=== PATIENT | male | born 1945 | race Caucasian/White ===

== ENCOUNTER 2019-05-04 10:18 | Outpatient (CLI) | payer MEDICARE, BC, SELFPAY ==
[2019-05-04 13:24] LABS: CREATININE 1.09 mg/dL (0.70-1.30); Glucose 102 mg/dL (70-100)
[2019-05-04 16:22] LABS: Calculated LDL 109 mg/dL; Cholesterol 179 mg/dL (50-200); HDL Cholesterol 50 mg/dL (40-60); Triglyceride 101 mg/dL (30-150)
== END 2019-05-04 10:38 ==
PROVIDERS: PCP Family Medicine; Visit Provider Family Medicine
DX: E78.5 Hyperlipidemia, unspecified (principal); R73.02 Impaired glucose tolerance (oral)
CPT/HCPCS: 36415; 80061; 82947; 82565

== ENCOUNTER 2019-08-21 09:08 | Emergency (ER) | payer MEDICARE, BC, SELFPAY ==
[2019-08-21 09:11] VITALS: BP 131/93; PULSE 65; RESP 14; TEMP 36.4; O2SAT 96
--- NOTE | 2019-08-21 09:17 | ED.GENADUL_ITS ---
Discharge Plan Disposition Patient Disposition: HOME Condition: Stable Discharge Details Chief Complaint: EyeProblem Clinical Impression: Herpes zoster ophthalmicus, right eye Primary Care Provider: Hugo Cochran ED Provider: Hiral Simmons Home Meds and New Rx's Prescriptions: Continued atorvastatin 10 mg tablet 10 mg PO HS Qty: 90 RF: 3 aspirin 81 MG tablet,delayed release (DR/EC) 81 mg PO DAILY RF: 0 lysine [L-Lysine] 500 MG tablet 1 tab PO DAILY RF: 0 Fish Oil 500 MG capsule 1 cap PO DAILY RF: 0 Centrum Silver 1 EACH tablet 1 ea PO DAILY RF: 0 tmfsnssk-ixca-cxngia-hyalur ac 1 EACH capsule 1 ea PO DAILY RF: 0 tamsulosin 0.4 mg capsule 0.8 mg PO DAILY Qty: 180 RF: 3 finasteride 5 mg tablet 5 mg PO DAILY Qty: 90 RF: 3 cyanocobalamin (vitamin B-12) 2,500 MCG tablet 2,500 mcg PO DAILY RF: 0 Discharge Instructions Instructions: Shingles (ED) Additional Instructions: Take the valacyclovir until finished. You can apply cool compress to the area as needed. You can try lubricating eyedrops if needed. Call your primary care doctor's office on Friday morning to schedule a follow-up appointment for reevaluation this week. Return to the emergency department if you develop any worsening or new concerning symptoms of fever, headache, dizziness or any other concerns. Discharge Data Discharge Date/Time-TO BE ENTERED AT DEPARTURE: 08/21/19 10:03 Discharge Physician: Hiral Simmons Medical Decision Making 73-year-old male who presents with right eye irritation for the past week now with rash around eyes since yesterday. Patient states he has had right eye blurry vision has been worse in his left eye for several years, but this seems slightly worse than usual since symptoms started. Patient has a history of dementia but told at times that he feels like his right eye is swollen. noted yesterday that patient has a few bumps under his right eye and now with swelling. She called the PCP and they started patien t on valacyclovir which he took 2 doses but they came here for further evaluation. He denies fever, headache, dizziness and does not wear contacts or glasses. Visual acuity 20/25 both, 20/25 left, 20/50 right. Patient has baseline worsening vision in right eye so unclear if this is close to his baseline. Right eye appears minimally injected. There are 3-4 to millimeter vesicles/erosions noted lateral to the right eye. As well as to 1 to 1.5 mm minimally tender areas of swelling just inferior to this. No obvious foreign body with full inspection including eyelid eversion. Fluorescein staining negative for corneal abrasion. Slit-lamp exam negative for corneal ulcer or other foreign body. Discussed with and patient that exam at this point time does appear more consistent with herpes zoster ophthalmicus. Patient appears nontoxic. Would recommend continued treatment with valacyclovir. I also discussed that symptoms may progress or worsen and present as another etiology or diagnosis. Advised to follow up with the primary care doctor for re-evaluation. Usual and customary return precautions given prior to discharge. HPI General Date/Time Provider Initiated Documentation: 08/21/19 09:14 . History of Present Illness 73 year old M presents to the emergency department with the chief complaint of R eye pain and rash, Quality is described as burning, aching and sharp, and is localized to the face and eyes. Patient started experiencing this day(s) (1 week for pain, 1 day for rash) and it has been constant. No relieving factors improve symptom(s), No exacerbating factors reported . Patient notes denies chest pain, cough, diaphoresis, fever/chills, headaches, loss of appetite, malaise, nausea/vomiting, rash, seizure, shortness of breath, syncope and weakness. Patient did receive the following treatments prior to arrival, none Related Data Home Medications Medication Instructions Recorded Confirmed aspirin 81 mg PO DAILY tab-cap 07/09/13 08/21/19 Fish Oil 1 cap PO DAILY 08/20/13 08/21/19 lysine [L-Lysine] 1 tab PO DAILY 08/20/13 08/21/19 cyanocobalamin (vitamin B-12) 2,500 mcg PO DAILY 04/19/16 08/21/19 Centrum Silver 1 ea PO DAILY 05/22/16 08/21/19 tjillcfn-fneo-jqefzz-hyalur ac 1 ea PO DAILY 01/21/17 08/21/19 tamsulosin 0.4 mg capsule 0.8 mg PO DAILY #180 cap 01/15/19 08/21/19 finasteride 5 mg tablet 5 mg PO DAILY #90 tab 04/30/19 08/21/19 atorvastatin 10 mg tablet 10 mg PO HS #90 tab 05/04/19 08/21/19 Previous Rx's Medication Instructions Recorded tamsulosin 0.4 mg capsule 0.8 mg PO DAILY #180 cap 01/15/19 finasteride 5 mg tablet 5 mg PO DAILY #90 tab 04/30/19 atorvastatin 10 mg tablet 10 mg PO HS #90 tab 05/04/19 Allergies Allergy/AdvReac Type Severity Reaction Status Date / Time donepezil AdvReac Intermediate bradycardia Unverified 08/21/19 09:15 General Stated Complaint: EyeProblem TREMAYNE: 4 Review of Systems All systems reviewed & are unremarkable except as noted in HPI and below Constitutional Constitutional: Reports as per HPI, Denies chills and Denies fever(s) Eyes Eyes: Denies blurry vision ENT Ears, Nose, Mouth, and Throat: Denies dizziness, Denies sore throat and Denies throat swelling Cardiovascular Cardiovascular: Denies chest pain and Denies dyspnea Respiratory Respiratory: Denies cough and Denies dyspnea Gastrointestinal Gastrointestinal: Denies abdominal pain, Denies diarrhea and Denies vomiting Genitourinary Genitourinary: Denies hematuria and Denies dysuria Musculoskeletal Musculoskeletal: Denies back pain and Denies numbness Integumentary/Breasts Skin/Breast: Denies lesions and Denies rash Neurologic Neurologic: Denies dizziness, Denies focal weakness and Denies numbness Allergic/Immunologic Allergic/Immunologic: Denies throat swelling PFSH Medical History Hearing loss Hyperlipidemia Surgical History Colonoscopy - IV Sedation (04/19/16) Repair of inguinal hernia (~1987) RIGHT SHOULDER SURGERY Vasectomy Family History Mother , age 92 Dementia Father , age 74 Heart disease Sister Dementia Son No problems noted. Daughter No problems noted. Social History Smoking/Tobacco Use Status: Never Second Hand Exposure: Yes Alcohol Intake: never Drug use: Never Substance use type: does not use Caregiver/Support person: No Household members: spouse Housing: house Communication Needs: Hard of Hearing Do you need help understanding health information?: Rarely Pets and animals: No Sexually active: No Do you think of yourself as: straight/heterosexual Current gender identity: male What is your relationship status?: How often do you talk on the phone with friends or family?: decline to answer How often do you get together with friends or relatives?: three or more times per week How often do you attend buddhist or christian services?: 1-3 times per year Do you belong to any clubs or organized social groups?: no Panel score (0-1 are the most socially isolated patients): 2 What type of physical activity do you participate in: walking, weight lifting and other Duration: 60-90 minutes/day Frequency: 5-6 times per week Alexa/Anabaptism: None Special alexa needs: No Seatbelt use: always Helmet use: No Drive intox or ride w/intox semi truck driver: No Do you feel safe at home: Yes Do you feel safe in your relationship?: Yes Exam Const General: cooperative, healthy appearing and no acute distress HENMT Head: normal to inspection Ears: hearing grossly normal bilaterally, external ears normal and TM's normal bilaterally General nose exam: external nose normal Face and sinus: normal facial exam Mouth: oral mucosae normal Throat: posterior oropharynx normal Eyes General: appearance normal, both eyes and all related structures Periorbital: periorbital findings normal Eyelids: eyelids normal Conjunctivae: conjunctival abnormality right conjunctival injection (Mild, near lateral inferior aspect) Pupils: PERRL EOM: EOM intact bilaterally Eyes/upper lids images: 1. 3 scattered crusty papules noted lateral and inferior to lateral aspect of right eye. They appear. 2. 2 raised minimally tender not well-circumscribed papules/areas of edema just inferior to lateral eye. There is no erythema, ecchymosis, lesions or rash ar ound these areas. Neck Neck: normal visual inspection Resp Effort & Inspection: normal respiratory effort and able to speak in complete sentences Cardio Rate: regular rate Skin General skin exam: no rashes or lesions noted Neuro General: alert, awake and oriented x3 Motor: muscle tone normal throughout Extrem General: normal to inspection and full ROM Psych Appearance: grossly normal Affect: normal affect Course Vital Signs Vital signs: Vital Signs Temperature 97.5 F L 08/21/19 09:11 Pulse 65 08/21/19 09:11 Respiratory Rate 14 08/21/19 09:11 Blood Pressure 131/93 H 08/21/19 09:11 Pulse Oximetry 96 08/21/19 09:11 Temperature 97.5 F L 08/21/19 09:11 Temperature Source Temporal Artery Scan 08/21/19 09:11 Pulse 65 08/21/19 09:11 Respiratory Rate 14 08/21/19 09:11 Respiratory Effort Non-Labored 08/21/19 09:13 Blood Pressure 131/93 H 08/21/19 09:11 Blood Pressure Position Sitting 08/21/19 09:11 Pulse Oximetry 96 08/21/19 09:11 Pain Level 0 08/21/19 09:11
[2019-08-21] MEDS: Balanced Salt Solution 15 ML BTL (09:54)
[2019-08-21] MEDS: Fluorescein STRIPS 100/BOX 1 MG (09:54)
[2019-08-21] MEDS: Tetracaine 0.5% 4 ML BTL (09:54)
== END 2019-08-21 10:03 | disposition home or self-care (01) ==
PROVIDERS: Emergency Provider Physician Assistant; PCP Family Medicine
DX: B02.30 Zoster ocular disease, unspecified (principal)
CPT/HCPCS: 99284; 99283

== ENCOUNTER → 2021-09-13 11:20 | Outpatient (BNVA) | payer MEDICARE, BC, SELFPAY | PROVIDERS: PCP Family Medicine; Referring Provider Family Medicine; Visit Provider Surgery | DX: K40.90 Unilateral inguinal hernia, without obstruction or gangrene, not specified as recurrent (principal); R73.9 Hyperglycemia, unspecified; N40.1 Benign prostatic hyperplasia with lower urinary tract symptoms; F03.90 Unspecified dementia, unspecified severity, without behavioral disturbance, psychotic disturbance, mood disturbance, and anxiety | CPT/HCPCS: 99214; 99242 ==

== ENCOUNTER 2021-09-13 13:08 | Outpatient (REF) | payer MEDICARE, BC, SELFPAY ==
[2021-09-13 14:59] LABS: Abs Immature Grans 0.05 10^3/uL (0.0-0.06); Absolute Basophil Count 0.05 10^3/uL (0.0-0.2); Absolute Eosinophil Count 0.13 10^3/uL (0.0-0.7); Absolute Lymphocyte Count 1.55 10^3/uL (1.2-3.4); Absolute Monocyte Count 0.61 10^3/uL (0.1-0.8); Absolute Neutrophil Count 6.08 10^3/uL (1.2-6.7); Basophils % 0.6; Eosinophils % 1.5; HCT 44.4 % (40.0-50.0); HGB 14.4 g/dL (13.5-17.5); Immature Grans % 0.6; Lymphocytes % 18.3; MCH 30.4 pg (27.0-33.0); MCHC 32.4 % (32.0-36.0); MCV 93.9 fL (80-95); MPV 10.2 fL (8.0-11.0); Monocytes % 7.2; Neutrophils % 71.8; Nucleated RBC 0 %; Platelet Count 278 10^3/uL (130-400); RBC 4.73 10^6/uL (4.36-5.78); RDW 13.1 % (11.8-14.1); RDW-SD 45.1 fL; WBC 8.47 10^3/uL (4.4-10.8)
[2021-09-13 15:20] LABS: ALT 20 U/L (16-63); AST 14 U/L (15-37); Albumin 3.8 g/dL (3.4-5.0); Alkaline Phosphatase 96 U/L (46-116); Anion Gap 8.7 mmol/L (3-11); BUN 15 mg/dL (7-18); Bilirubin, Total 0.7 mg/dL (0.2-1.0); CO2 28.3 mmol/L (21.0-32.0); CREATININE 1.1 mg/dL (0.70-1.30); Calcium 8.9 mg/dL (8.5-10.1); Chloride 104 mmol/L (98-107); Glucose 107 mg/dL (74-106); Potassium 4.4 mmol/L (3.5-5.1); Sodium 141 mmol/L (136-145); TSH (W/Ref FT4) 2.41 uIU/mL (0.36-3.74); Total Protein 7.1 g/dL (6.4-8.2)
== END 2021-09-13 13:09 | disposition home or self-care (01) ==
LOC: LBN 13:08
PROVIDERS: PCP Family Medicine; Visit Provider Surgery
DX: E78.5 Hyperlipidemia, unspecified (principal); F03.90 Unspecified dementia, unspecified severity, without behavioral disturbance, psychotic disturbance, mood disturbance, and anxiety; K40.90 Unilateral inguinal hernia, without obstruction or gangrene, not specified as recurrent; N40.1 Benign prostatic hyperplasia with lower urinary tract symptoms; R73.9 Hyperglycemia, unspecified
CPT/HCPCS: 80053; 84443; 85025

== ENCOUNTER 2021-10-03 02:04 | Outpatient (CLI) | payer MEDICARE, BC, SELFPAY ==
--- NOTE | 2021-10-03 09:35 | DI.US_ITS ---
APPROVED REPORT EXAM: Comprehensive 2D, Doppler, and color-flow Echocardiogram Patient Location: Out-Patient Chef French: Abigail Ramirez RDCS (AE) Indications: HTN, Pre op, Hyperlipidemia Other Information Study Quality: Adequate Conclusion Normal left ventricular chamber size and wall thickness. Estimated ejection fraction is 60%. 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 The left ventricular systolic function is normal. The left ventric ular ejection fraction is within the normal range. There is normal left ventricular wall thickness. T here is normal LV segmental wall motion. There is no ventricular septal defect visualized. LVEF is 60 %. Right Ventricle Right ventricle is grossly normal in size. Right ventricular systolic function is grossly normal. Atria The left atrium size is normal. The right atrium size is normal. The interatrial septum is intact wit h no evidence for an atrial septal defect. Aortic Valve The aortic valve is normal in structure. Aortic valve is trileaflet. There is no aortic valvular sten osis. Mild aortic regurgitation. Mitral Valve The mitral valve is normal in structure. No evidence of mitral valve stenosis. Trace mitral regurgita tion. Tricuspid Valve The tricuspid valve is normal in structure. There is no tricuspid valve stenosis. Trace tricuspid reg urgitation. Unable to assess PA pressure. Pulmonic Valve The pulmonary valve is normal in structure. There is no pulmonic valvular stenosis. There is no pulmo andrew valvular regurgitation. Great Vessels The aortic root is normal in size. The ascending aorta is dilated.4.3 cm Aortic arch is not well visu alized. IVC is normal in size and collapses >50% with inspiration. Pericardium There is no pericardial effusion. 2D Dimensions IVSD d PLAX 1.01 cm M: 0.6-1.2 LV Vol A2C d MOD 119.8 mL LVPW d PLAX 1.04 cm M: 0.6 - 1.2 LV Vol A4C d MOD 71.4 mL LVID d PLAX 4.50 cm M: 4.2 - 5.8 LA vol/ BSA A2C s A-L 33.9 mL/m2 LVDs 3.15 cm M: 2.5 - 4.0 LA vol/ BSA A4C s A-L 16.3 mL/m2 Ao Root d 3.55 cm M: 3.1 - 3.7 LA Vol/ BSA Biplane s A-L 23.5 mL/m2 RA Area A4C 14.01 cm2 LA Area A4C s MOD 14.18 cm2 RA Vol/ BSA A4C s A-L 19.2 mL/m2 LA Area A2C s MOD 20.48 cm2 Ao Asc Diam d 4.31 cm M: 2.6 - 3.4 LV EF A4C MOD 60.7 % LV EF Teichholz 56.7 % LV EF A2C MOD 59.0 % LVEF (Avila's) 59.09 % M: 52 - 72 LV EF Biplane MOD 59.1 % LV Volume 70.19 mL M: 62 - 150 SV 55.30 mL LV Volume Index 35.09 mL/m2 M: 34 - 74 SV Index 27.64 mL/m2 LV Vol Biplane MOD 93.6 mL FS 29.55 % LV Diastology MV E' medial 0.110 (>0.07 m/s) E/A Ratio 0.7 LV E/e MED 3.90 (<14) MV E Vmax 0.43 (0.4-1.3 m/s) MV E' lateral 0.108 (>0.1 m/s) MV A Vmax 0.65 (0.4-1.3 m/s) LV E/e LAT 3.95 (<14) MV E/A Ratio 0.63 MV E/E' medial 3.91 MV E/E' lateral 3.98 Aortic Valve LVOT Area 3.71 cm2 AoV Area Vmax 3.08 cm2 LVOT Vmax 1.24 m/s AoV Area/ BSA (Vmax) 1.54 cm2/m2 LVOT Mean Edvin. 0.86 m/s ZAHRA Mean Edvin. 3.07 cm2 LVOT Peak Grad 6.1 mmHg ZAHRA Mean Edvin. Index 1.53 cm2/m2 LVOT Mean Grad 3.3 mmHg AR DT 2014 msec LVOT VTI 0.213 m AR PHT 584 msec LVOT Diam s 2.15 cm AoV Vmax 1.49 m/s Velocity Ratio 0.83 AoV Mean Edvin. 1.04 m/s AoV Peak Grad 8.9 mmHg LVOT SV 79.12 mL AoV Mean Grad 4.9 mmHg AoV VTI 0.292 m AoV Area VTI 2.70 cm2 AoV Area/ BSA (VTI) 1.35 cm/m2 Mitral Valve MV DT 431 (160-240 msec) MV PHT 125 msec MV Area PHT 1.76 cm2 MV VTI 0.240 m MV Area VTI 3.30 (4.0-6.0 cm2) Pulmonary Valve PV Vmax 0.95 (0.5-1.5 m/s) RVOT Peak Gr. 1.60 mmHg PV Peak Grad 3.6 mmHg RVOT Mean Gr. 0.95 mmHg PV Mean Grad 2.3 mmHg RVOT VTI 0.102 m PV VTI 0.185 m RVOT Vmax 0.63 m/s
== END 2021-10-03 02:24 ==
PROVIDERS: PCP Family Medicine; Visit Provider Surgery
DX: K40.90 Unilateral inguinal hernia, without obstruction or gangrene, not specified as recurrent (principal); Z01.818 Encounter for other preprocedural examination; R73.9 Hyperglycemia, unspecified; I10 Essential (primary) hypertension; F03.90 Unspecified dementia, unspecified severity, without behavioral disturbance, psychotic disturbance, mood disturbance, and anxiety
CPT/HCPCS: 93306

== ENCOUNTER 2022-06-03 15:46 | Outpatient (REF) | payer MEDICARE, BC, SELFPAY ==
[2022-06-03 20:24] LABS: Bilirubin Negative (Negative); Blood Negative (Negative); Clarity Clear (Clear); Glucose Negative (Negative); Ketones Negative (Negative); Leukocyte Esterase Negative (Negative); Nitrite Negative (Negative); Urobilinogen 0.2 EU/dL (Up TO 0.2); pH 6.5 (5-8)
== END 2022-06-03 15:47 | disposition home or self-care (01) ==
LOC: LBN 15:46
PROVIDERS: PCP Family Medicine; Visit Provider Family Medicine
DX: R35.0 Frequency of micturition (principal)
CPT/HCPCS: 81003

== ENCOUNTER 2023-07-15 17:36 | Outpatient (REF) | payer MEDICARE, BC, SELFPAY ==
[2023-07-15 16:35] LABS: Abs Immature Grans 0.07 10^3/uL (0.0-0.06); Absolute Basophil Count 0.05 10^3/uL (0.0-0.2); Absolute Eosinophil Count 0.16 10^3/uL (0.0-0.7); Absolute Lymphocyte Count 1.73 10^3/uL (1.2-3.4); Absolute Monocyte Count 0.86 10^3/uL (0.1-0.8); Absolute Neutrophil Count 5.21 10^3/uL (1.2-6.7); Basophils % 0.6; HCT 44.8 % (40.0-50.0); HGB 15.2 g/dL (13.5-17.5); Immature Grans % 0.9; Lymphocytes % 21.4; MCH 30.8 pg (27.0-33.0); MCHC 33.9 % (32.0-36.0); MCV 91 fL (80-95); MPV 9.9 fL (8.0-11.0); Monocytes % 10.6; Neutrophils % 64.5; Platelet Count 291 10^3/uL (130-400); RBC 4.93 10^6/uL (4.36-5.78); RDW 13.6 % (11.8-14.1); RDW-SD 45.3 fL; WBC 8.08 10^3/uL (4.4-10.8)
[2023-07-15 16:46] LABS: Iron 76 ug/dL (65-175); Total Iron Binding Capacity 268 ug/dL (250-450); Transferrin Sat 28 % (20-55)
[2023-07-15 17:02] LABS: Hemoglobin A1C 5.6 % (<5.7)
[2023-07-15 17:09] LABS: Vitamin D 25 Total 33.4 ng/mL (30-100)
[2023-07-15 17:17] LABS: ALT 31 U/L (16-63); AST 21 U/L (15-37); Albumin 3.8 g/dL (3.4-5.0); Alkaline Phosphatase 91 U/L (46-116); Anion Gap 10.2 mmol/L (3-11); BUN 18 mg/dL (7-18); Bilirubin, Total 0.7 mg/dL (0.2-1.0); CO2 26.8 mmol/L (21.0-32.0); CREATININE 1.4 mg/dL (0.70-1.30); Calcium 9.3 mg/dL (8.5-10.1); Chloride 102 mmol/L (98-107); Estimated GFR 51.45 (mL/min/1.73m2); Ferritin 277 ng/mL (26-388); Folate 17.7 ng/mL (8.6-20.0); Glucose 107 mg/dL (74-106); Magnesium 2.4 mg/dL (1.8-2.4); Potassium 4.4 mmol/L (3.5-5.1); Sodium 139 mmol/L (136-145); TSH (W/Ref FT4) 3.84 uIU/mL (0.36-3.74); Total Protein 7.1 g/dL (6.4-8.2); Vitamin B12 355 pg/mL (193-986)
[2023-07-15 17:39] LABS: FREE T4 0.99 ng/dL (0.76-1.46); NT-proBNP 71 pg/mL (<300)
== END 2023-07-15 17:37 | disposition home or self-care (01) ==
LOC: LBN 17:36
PROVIDERS: PCP Family Medicine; Visit Provider Nurse Practitioner Gerontology
DX: G30.1 Alzheimer's disease with late onset (principal)
CPT/HCPCS: 80053; 82306; 82607; 82728; 82746; 83036; 83540; 83550; 83735; 83880; 84439; 84443; 85025